=== PATIENT | female | born 1955 | race Two or more races ===

== ENCOUNTER 2019-02-28 20:51 | Emergency (ER) | payer SELFPAY ==
[~2019-02-28] VITALS: Ht 154.9 cm; Wt 75.7 kg
[2019-02-28 21:10] VITALS: BP 163/70
[2019-02-28] MEDS ORDERED: KETOROLAC 15 MG/ML VIAL. IV ONE ×2 (21:45→22:15)
[2019-02-28] MEDS ORDERED: PROCHLORPERAZINE 10 MG/2 ML VIAL. IV ONE ×2 (21:45→22:15)
[2019-02-28] MEDS ORDERED: diphenhydrAMINE 50 MG/ML VIAL IVP ONE ×2 (21:45→22:15)
--- NOTE | 2019-02-28 21:58 | PHYS DOC ---
Past Medical History Past Medical History: Diabetes-Type II (ANDRES QUIÑONES APRN) Past Surgical History: Appendectomy, Cholecystectomy (ANDRES QUIÑONES APRN) Additional Information: non smoker Alcohol Use: None Drug Use: None (ANDRES QUIÑONES APRN) Adult General Chief Complaint Chief Complaint: HEADACHE HPI HPI Patient is 64-year-old female that presents to the ER this evening after having a headache for 2 weeks. The headache is located in the left frontal and diffuse occipital region of the head. She also complains of pressure in her eyes. Headache has gotten worse as it has progressed. Headache is not thunderclap in origin. Headache is atraumatic. Saturday was seen at doctor for headache. This was the first time that she had been to the doctor for two or three years. Se verity of pain is rated 8 out of 10 and is rated as throbbing. Associated symptoms include cold symptoms where she has congestion and mucus. (ANDRES QUIÑONES APRN) Review of Systems Review of Systems Constitutional: Denies fever or chills [] Eyes: Denies change in visual acuity, redness. Reports eye pressure. [] HENT: Reports nasal congestion. Denies sore throat [] Respiratory: Denies cough or shortness of breath [] Cardiovascular: No additional information not addressed in HPI [] GI: Denies abdominal pain, nausea, vomiting, bloody stools or diarrhea [] : Denies dysuria or hematuria [] Musculoskeletal: Denies back pain or joint pain [] Integument: Denies rash or skin lesions [] Neurologic: Denies headache, focal weakness or sensory changes [] Endocrine: Denies polyuria or polydipsia [] Complete systems were reviewed and found to be within normal limits, except as documented in this note. (ANDRES QUIÑONES APRN) Current Medications Current Medications Current Medications Medications (Trade) Dose Ordered Sig/Sapna Start Time Stop Time Status Last Admin Dose Admin Diphenhydramine HCl (Benadryl) 25 mg 1X ONCE 02/28/19 22:15 02/28/19 22:24 DC 02/28/19 22:15 25 MG Ketorolac Tromethamine (Toradol 15mg Vial) 15 mg 1X ONCE 02/28/19 22:15 02/28/19 22:24 DC 02/28/19 22:15 15 MG Ketorolac Tromethamine (Toradol 30mg Vial) 30 mg STK-MED ONCE 02/28/19 22:12 02/28/19 22:13 DC Prochlorperazine Edisylate (Compazine) 10 mg 1X ONCE 02/28/19 22:15 02/28/19 22:24 DC 02/28/19 22:15 10 MG (JUHI GALAN MD) Allergies Allergies Allergies Coded Allergies Type Severity Reaction Last Updated Verified No Known Drug Allergies 02/28/19 No (JUHI GALAN MD) Physical Exam Physical Exam Constitutional: Well developed, well nourished, no acute distress, non-toxic appearance. [] HENT: Normocephalic, atraumatic, bilateral external ears normal, oropharynx moist, no oral exudates, nose normal. [] Eyes: PERRLA, EOMI, conjunctiva normal, no discharge. No temporal tenderness on palpation. Neck: Normal range of motion, no tenderness, supple, no stridor. [] Cardiovascular:Heart rate regular rhythm, no murmur [] Lungs & Thorax: Bilateral breath sounds clear to auscultation [] Abdomen: Bowel sounds normal, soft, no tenderness, no masses, no pulsatile masses. [] Skin: Warm, dry, no erythema, no rash. [] Back: No tenderness, no CVA tenderness. [] Extremities: No tenderness, no cyanosis, no clubbing, ROM intact, no edema. [] Neurologic: Alert and oriented X 3, normal motor function, normal sensory function, no focal deficits noted. [] Psychologic: Affect normal, judgement normal, mood normal. [] (ANDRES QUIÑONES APRN) Current Patient Data Vital Signs Vital Signs Date Time Temp Pulse Resp B/P (MAP) Pulse Ox O2 Delivery O2 Flow Rate FiO2 02/28/19 21:10 99.0 63 16 163/70 (101) 96 Room Air 99.0 (JUHI GALAN MD) EKG EKG [] (ANDRES QUIÑONES APRN) Radiology/Procedures Radiology/Procedures []PATIENT: MARVIN ONTIVEROSACCOUNT: [id number]#: [id number] : 1955 LOCATION: ER AGE: 64 SEX: F EXAM STATUS: REG ER ORD. PHYSICIAN: ANDRES QUIÑONES APRN REASON: worst headache of her life PROCEDURE: CT HEAD WO CONTRAST CT HEAD INDICATION: Worst headache of life. COMPARISON: None Available. Exposure: One or more of the following individualized dose reduction techniques were utilized for this examination: 1. Automated exposure control 2. Adjustment of the mA and/or kV according to patient size 3. Use of iterative reconstruction technique TECHNIQUE: 5 mm contiguous axial images were obtained from the skull base to the vertex . FINDINGS: No abnormal attenuation within the brain parenchyma. Tiny cortical calcification identified in the left frontal region, nonspecific. No evidence of acute intracranial hemorrhage. No extra-axial fluid collections. No mass effect or midline shift. Ventricular size is appropriate. Basal cisterns are patent. No fractures identified.Burnett-white differentiation is preserved.Globes and orbits are within normal limits. Paranasal sinuses and mastoid air cells are clear. IMPRESSION: No acute intracranial findings. Electronically signed by: Dandre Khan MD (03/01/2019 12:33 AM) [facility] (ANDRES QUIÑONES APRN) Course & Med Decision Making Course & Med Decision Making Pertinent Labs and Imaging studies reviewed. (See chart for details) Discussed signs and symptoms with patient. Will obtain a Head CT and will order IV medication for management. Patient is agreeable. Symptoms improved with IV medications. CT of the head is negative. Will discharge home. Patient and family is agreeable. (ANDRES QUIÑONES APRN) Course & Med Decision Making Staff Physician Addendum: I was working in the ER during the course of this patient's visit. I was available for consultation as needed, I did briefly evaluate this patient really did not sound like a subarachnoid and was a subacute headache. (JUHI GALAN MD) Dragon Disclaimer Dragon Disclaimer This electronic medical record was generated, in whole or in part, using a voice recognition dictation system. (ANDRES QUIÑONES APRN) Departure Departure Impression: Primary Impression: Headache Disposition: HOME, SELF-CARE Condition: STABLE Referrals: NO PCP (PCP) Patient Instructions: Migraine Headache, [id number] Additional Instructions: Follow up with Primary Care Doctor. Come back to ER if symptoms worsen. Problem Qualifiers Primary Impression: Headache Headache type: unspecified Headache chronicity pattern: acute headache Intractability: not intractable Qualified Codes: R51 - Headache ANDRES QUIÑONES APRN February 28, 2019 21:58 JUHI GALAN MD March 08, 2019 21:01
[2019-02-28] MEDS ORDERED: diphenhydrAMINE 50 MG/ML VIAL ONE (22:12)
[2019-02-28] MEDS ORDERED: PROCHLORPERAZINE 10 MG/2 ML VIAL. ONE (22:12)
[2019-02-28] MEDS ORDERED: KETOROLAC 30 MG/ML VIAL. ONE (22:12)
[2019-02-28] MEDS ORDERED: KETOROLAC 30 MG/ML VIAL. IM ONE (22:15)
[2019-02-28] MEDS ORDERED: PROCHLORPERAZINE 10 MG/2 ML VIAL. IM ONE (22:15)
[2019-02-28] MEDS ORDERED: diphenhydrAMINE 50 MG/ML VIAL IM ONE (22:15)
--- NOTE | 2019-03-01 00:35 | RAD ---
CT HEAD INDICATION: Worst headache of life. COMPARISON: None Available. Exposure: One or more of the following individualized dose reduction techniques were utilized for this examination: 1. Automated exposure control 2. Adjustment of the mA and/or kV according to patient size 3. Use of iterative reconstruction technique TECHNIQUE: 5 mm contiguous axial images were obtained from the skull base to the vertex . FINDINGS: No abnormal attenuation within the brain parenchyma. Tiny cortical calcification identified in the left frontal region, nonspecific. No evidence of acute intracranial hemorrhage. No extra-axial fluid collections. No mass effect or midline shift. Ventricular size is appropriate. Basal cisterns are patent. No fractures identified.Burnett-white differentiation is preserved.Globes and orbits are within normal limits. Paranasal sinuses and mastoid air cells are clear. IMPRESSION: No acute intracranial findings. Electronically signed by: Dandre Khan MD (03/01/2019 12:33 AM) [facility]
== END 2019-03-01 01:58 | disposition home or self-care (01) ==
LOC: ER 20:51
DX: R51 Headache (principal); R09.81 Nasal congestion; E11.9 Type 2 diabetes mellitus without complications
CPT/HCPCS: 70450; 96374; 96375; 99284; J0780; J1200; J1885

== ENCOUNTER 2020-04-20 22:46 | Emergency (ER) | payer SELFPAY ==
[~2020-04-20] VITALS: Ht 160 cm; Wt 77.2 kg
--- NOTE | 2020-04-20 23:03 | PHYS DOC ---
Past Medical History Past Medical History: Diabetes-Type II Past Surgical History: Appendectomy, Cholecystectomy Smoking Status: Current Every Day Smoker Alcohol Use: None Drug Use: None General Adult EDM: Chief Complaint: MECHANICAL FALL HPI: HPI: Patient is a 65 year old female who presents with complaint of right foot and ankle pain after she slipped on wood floor and twisted her foot and ankle. Patient rates pain as moderate and states that pain is worsened with weightbearing. [] Review of Systems: Review of Systems: Constitutional: Denies fever or chills. [] Respiratory: Denies cough or shortness of breath. [] Cardiovascular: Denies chest pain or edema. [] Musculoskeletal: Complains of right foot and ankle pain. [] Integument: Denies rash. [] Heart Score: Risk Factors: Risk Factors: DM, Current or recent (<one month) smoker, HTN, HLP, family history of CAD, obesity. Risk Scores: Score 0 - 3: 2.5% MACE over next 6 weeks - Discharge Home Score 4 - 6: 20.3% MACE over next 6 weeks - Admit for Clinical Observation Score 7 - 10: 72.7% MACE over next 6 weeks - Early Invasive Strategies Allergies: Allergies: Allergies Coded Allergies Type Severity Reaction Last Updated Verified No Known Drug Allergies 02/28/19 No Physical Exam: PE: Constitutional: Well developed, well nourished, no acute distress, non-toxic appearance. [] Cardiovascular: Regular rate and rhythm [] Lungs & Thorax: Bilateral breath sounds clear to auscultation [] Extremities: Examination of right foot demonstrates mild soft tissue swelling and ecchymosis around the fourth and fifth metatarsals with tenderness overlying this area. [] Neurologic: Alert and oriented X 3, normal motor function, normal sensory function, no focal deficits noted. [] EKG: EKG: [] Radiology/Procedures: Radiology/Procedures: [] Impression: PROCEDURE: ANKLE RIGHT 3V Exam: Right ankle 3 views. Right foot 3 views INDICATION: Fall TECHNIQUE: Frontal, lateral and oblique views of the right ankle and right foot. Comparisons: None FINDINGS: Foot: Bone mineralization is normal. No acute or healed fractures. Soft tissues are unremarkable. Joint spaces are well-maintained. Ankle: Bone mineralization is normal. No acute or healed fractures. Soft tissues are unremarkable. Joint spaces are well-maintained. IMPRESSION: 1. No acute osseous abnormality at the right foot. 2. No acute osseous abnormality at the right ankle. Electronically signed by: Oc Winters MD (04/20/2020 11:18 PM) [id number] Course & Med Decision Making: Course & Med Decision Making Pertinent Labs and Imaging studies reviewed. (See chart for details) [] Dragon Disclaimer: Dragon Disclaimer: This electronic medical record was generated, in whole or in part, using a voice recognition dictation system. Departure Departure Impression: Primary Impression: Right foot sprain Qualified Codes: S93.601A - Unspecified sprain of right foot, initial encounter Disposition: HOME, SELF-CARE Condition: STABLE Referrals: NO PCP (PCP) Patient Instructions: Foot Sprain Scripts Tramadol Hcl (TRAMADOL HCL) 50 Mg Tablet 50 MG PO Q6HRS PRN for PAIN, #10 TAB Prov: PETE ELLIS Jr. DO 04/20/20 Diclofenac Sodium (DICLOFENAC SODIUM) 50 Mg Tablet.dr 1 TAB PO BID PRN for PAIN, #20 TAB Prov: PETE ELLIS Jr. DO 04/20/20 Justicifation of Admission Dx: Justifications for Admission: Justification of Admission Dx: Comment: (Not applicable) PETE ELLIS Jr. DO Apr 20, 2020 23:03
--- NOTE | 2020-04-20 23:21 | RAD ---
Exam: Right ankle 3 views. Right foot 3 views INDICATION: Fall TECHNIQUE: Frontal, lateral and oblique views of the right ankle and right foot. Comparisons: None FINDINGS: Foot: Bone mineralization is normal. No acute or healed fractures. Soft tissues are unremarkable. Joint spaces are well-maintained. Ankle: Bone mineralization is normal. No acute or healed fractures. Soft tissues are unremarkable. Joint spaces are well-maintained. IMPRESSION: 1. No acute osseous abnormality at the right foot. 2. No acute osseous abnormality at the right ankle. Electronically signed by: Oc Winters MD (04/20/2020 11:18 PM) [id number]
[2020-04-20] MEDS ORDERED: TRAM50TA PO (23:26)
[2020-04-20] MEDS ORDERED: DICL50TA4 PO (23:26)
[2020-04-20 23:45] VITALS: BP 127/61
== END 2020-04-20 23:50 | disposition home or self-care (01) ==
LOC: ER 22:46
DX: S93.601A Unspecified sprain of right foot, initial encounter (principal); M25.571 Pain in right ankle and joints of right foot; E11.9 Type 2 diabetes mellitus without complications; F17.200 Nicotine dependence, unspecified, uncomplicated; W01.0XXA Fall on same level from slipping, tripping and stumbling without subsequent striking against object, initial encounter; Y93.89 Activity, other specified; Y92.89 Other specified places as the place of occurrence of the external cause; Y99.8 Other external cause status
CPT/HCPCS: 73610; 73630; 99284

== ENCOUNTER → 2021-07-31 | Outpatient (CLI) | payer OTHER ==
[~2021-07-31] MED LIST: DICL50TA4 PO; IOHEXOL 300 MG/ML 100ML VIAL. IV ONE; TRAM50TA PO
--- NOTE | 2021-07-31 10:08 | RAD ---
EXAMINATION: CT abdomen and pelvis with and without IV contrast. INDICATION:66 years, Female, microscopic hematuria. TECHNIQUE: Axial CT images of the abdomen and pelvis were obtained. Coronal and sagittal reformatted performed. COMPARISON: None. Exposure: One or more of the following individualized dose reduction techniques were utilized for thi s examination: 1. Automated exposure control 2. Adjustment of the mA and/or kV according to patient size 3. Use of iterative reconstruction technique. FINDINGS: LOWER CHEST: Unremarkable. ABDOMEN/PELVIS: Normal symmetric enhancement of the kidneys with normal excretion pattern. No hydronephrosis or nephr olithiasis. No filling defect in the collecting systems or opacified ureters. Multiple bilateral simp le parapelvic renal cysts. Subcentimeter hypodensity in the interpolar right kidney, too small to caitlyn racterize. Focal wall thickening of the anterior urinary bladder wall measures up to 5 mm. Liver, spleen, pancreas, adrenals and biliary ducts are normal. Cholecystectomy. Normal caliber abdom inal aorta. Mesenteric arteries and portal vein are patent. No abdominal adenopathy is size criteria. No pneumoperitoneum or ascites. No bowel obstruction or wall thickening. Appendix is not seen with c ertainty. Hysterectomy changes. No suspicious pelvic masses. MUSCULOSKELETAL: Grade 1 anterolisthesis of L5 over S1. Multilevel degenerative changes in the spine. No acute osseous process or suspicious lesion. Multiple calcified foci in the subcutaneous tissue of the gluteal alec ons, likely representing calcified injection granulomas. IMPRESSION: 1. No obstructive uropathy or urolithiasis. 2. Mild focal anterior urinary bladder wall thickening, indeterminate etiology. Recommend correlation with cystoscopy. 3. Other chronic/incidental findings, as as described above. Electronically signed by: Maciej Wang MD (07/31/2021 10:05 AM) [facility]
== END ==
LOC: CT 08:34
PROVIDERS: ATTEND Physician Assistant Medical
DX: R31.29 Other microscopic hematuria (principal); Z90.49 Acquired absence of other specified parts of digestive tract
CPT/HCPCS: 74178; Q9967

== ENCOUNTER 2021-10-04 11:55 | Emergency (ER) | payer SELFPAY ==
[~2021-10-04] VITALS: Ht 162.6 cm; Wt 85.0 kg
[~2021-10-04 11:55] MED LIST changes: -IOHEXOL 300 MG/ML 100ML VIAL. IV ONE
[2021-10-04] MEDS ORDERED: fentaNYL PF VIAL 100 MCG/2 ML VIAL IVP ONE (12:30)
[2021-10-04] MEDS ORDERED: KETAMINE HCL 500 MG/10 ML VIAL. ONE (13:06)
--- NOTE | 2021-10-04 13:06 | RAD ---
EXAM: XR RT TIBIA+FIBULA , XR LT WRIST 3VIEWS, XR FOREARM_LEFT 2 VIEWS 10/04/2021 12:39 PM CLINICAL INDICATION: Pain COMPARISON: None TECHNIQUE: 3 views of the left wrist. 2 views of the left forearm. 3 views of the right tibia and fi bula. FINDINGS: Left wrist: There is a impacted distal radial metaphyseal fracture with posterior angulation and at l east one half shaft width posterior displacement of the distal fragment. Probable intra-articular ext ension. There is a small minimally displaced ulnar styloid process fracture. The distal radioulnar jose angel int appears disrupted. There is diffuse soft tissue swelling. Left forearm: Distal radial and ulnar fractures as above. The rest of the radius and ulna are intact. Alignment at the elbow is maintained. There is soft tissue swelling at the wrist. Right tibia and fibula: Peripheral subchondral lucency seen at the posterior tibial plateau on obliqu e view is likely artifact, less likely a tibial plateau fracture. The tibia and fibula are otherwise intact. Alignment is normal. No soft tissue abnormality. IMPRESSION: 1. Impacted, displaced and angulated distal radial fracture. 2. Minimally displaced ulnar styloid process fracture. 3. Disruption of the distal radioulnar joint. 4. Subchondral lucency at the posterior tibial plateau seen on oblique view of the leg is most likely artifact. A tibial plateau fracture is less likely. Dedicated radiograph of the knee to be obtained to further evaluate. Electronically signed by: Lissa Bains MD (10/04/2021 1:03 PM) [id number]
[2021-10-04] MEDS ORDERED: PROPOFOL 10 MG/ML (20ML) VIAL. IV ONE (13:15)
[2021-10-04] MEDS ORDERED: KETAMINE HCL IN NACL, ISO-OSM 50 MG/5 ML SYRINGE IV ONE (13:15)
[2021-10-04 13:45] VITALS: BP 197/81
--- NOTE | 2021-10-04 13:53 | RAD ---
XR KNEE 3 VIEWS_RT 10/04/2021 1:13 PM INDICATION: Subchondral lucency along the posterior tibial plateau COMPARISON: None available. TECHNIQUE: 3 views of the right knee are provided. FINDINGS/ IMPRESSION: There is no acute fracture or dislocation. Specifically, posterior tibial plateau appears intact. Tamara nt spaces are maintained. Bone mineralization is within normal limits. Regional soft tissues are with in normal limits. There is no soft tissue gas or osseous erosion. No radiopaque foreign body. No sign ificant knee joint effusion. Electronically signed by: Kianna Pratt MD (10/04/2021 1:51 PM) [id number]
--- NOTE | 2021-10-04 13:55 | RAD ---
XR LUMBAR SPINE 2-3V 10/04/2021 1:13 PM Indication: Low back pain COMPARISON: None available TECHNIQUE: 3 views of the lumbar spine are provided. Findings: 6.5 mm anterolisthesis of L5 on S1. There are 5 nonrib-bearing lumbar type vertebral bodies.. Limited evaluation for spondylolysis. Vertebral body heights are maintained. No acute fracture is identified . Mild endplate degenerative changes are identified involving the distal thoracic spine. Mild disc heig ht loss is identified at L1-L2 and L4-L5 and L5-S1. Mild endplate degenerative changes. Moderate face t arthropathy. No significant osseous neural foraminal soft canal stenosis. Nonobstructive bowel gas pattern. Visualized portions of the sacrum appear intact. Impression: Grade 1 retrolisthesis of L5 on S1 with limited evaluation for spondylolysis. No acute compression fr acture is identified. Electronically signed by: Kianna Pratt MD (10/04/2021 1:53 PM) [id number]
[2021-10-04] MEDS ORDERED: ACET500T68 PO (15:12)
[2021-10-04] MEDS ORDERED: MORP15TA PO (15:12)
--- NOTE | 2021-10-04 15:13 | PHYS DOC ---
Past Medical History Past Medical History: Depression, Diabetes-Type II, Hypertension Past Surgical History: Appendectomy, Cholecystectomy, Hysterectomy Smoking Status: Current Every Day Smoker Alcohol Use: None Drug Use: None Adult General Chief Complaint Chief Complaint: WRIST PAIN HPI HPI The patient is a 66-year-old female who is otherwise healthy. 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 Sat on her buttocks hard after falling on her hand and reports low back discomfort as well, mild. Also reports minimal discomfort over the anterior recio on the right. Denies striking head or neck or any other part of her body during the episode. Obvious closed deformity seen to left wrist. Review of Systems Review of Systems A 12 point review of systems was completed and was negative except where noted in HPI above. Current Medications Current Medications Current Medications Medications (Trade) Dose Ordered Sig/Sapna Start Time Stop Time Status Last Admin Dose Admin Fentanyl Citrate (Fentanyl 2ml Vial) 75 mcg 1X ONCE 10/04/21 12:30 10/04/21 12:31 DC 10/04/21 12:38 75 MCG Ketamine HCl (Ketamine) 500 mg STK-MED ONCE 10/04/21 13:06 10/04/21 13:07 DC Propofol (Diprivan) 85 mg 1X ONCE 10/04/21 13:15 10/04/21 13:23 DC 10/04/21 14:08 85 MG Allergies Allergies Allergies Coded Allergies Type Severity Reaction Last Updated Verified No Known Drug Allergies 10/04/21 No Physical Exam Physical Exam Older female appearing nontoxic and in no acute distress. Head is normocephalic and atraumatic. Neck is supple and nontender. Oropharynx is moist. Lungs are clear to auscultation at all stations. There is a normal S1 and S2 without rubs or gallops and capillary refill is appropriate, less than 2 seconds globally. Abdomen is soft, nontender and nondistended. Skin is warm and dry without cyanosis, clubbing or edema. Psychiatrically, the patient demonstrates appropriate mood and affect and is alert. Evaluation of the left upper extremity is remarkable for a closed deformity to the left wrist. Left upper extremity including the digits of the hand neurovascularly intact distally with strength out of 5, sensation intact light touch in all nerve distributions, radial pulse 2+, capillary refill less than 2 seconds, hand warm and well- perfused. Mild anterior lower pretibial tenderness without swelling, erythema or discomfort with ranging of any joint to the right lower extremity. Evaluation of the back reveals mild lower lumbar midline tenderness to palpation without erythema, warmth, swelling, step-offs or deformities. Bilateral lower extremities neurovascularly intact distally with strength out of 5, sensation intact light touch in all nerve distributions, DP and PT pulses 2+ and equal bilaterally, capillary refill less than 2 seconds, feet warm and well perfused. No dependent peripheral edema distally. No calf tenderness or swelling bilaterally. Current Patient Data Vital Signs Vital Signs Date Time Temp Pulse Resp B/P (MAP) Pulse Ox O2 Delivery O2 Flow Rate FiO2 10/04/21 14:30 68 15 10/04/21 14:00 4.0 10/04/21 13:45 98.5 197/81 10/04/21 12:38 Room Air 10/04/21 12:06 95 EKG EKG [] Radiology/Procedures Radiology/Procedures [] Course & Med Decision Making Course & Med Decision Making Plain films unremarkable aside from evidence of left wrist fracture which was addressed with closed reduction here in the emergency department. Ortho-Glass splint applied. Neurovascularly intact post procedure. Patient tolerated well. Post films demonstrate much improved alignment. Back to her neurocognitive baseline after ketofol sedation. Will discharge home with sling for comfort and referral for close follow-up with orthopedics in the office. Patient understands that if she feels worse instead of better or develops other new symptoms of concern that she will need to return to the emergency department immediately for reevaluation. All questions are answered. Dragon Disclaimer Dragon Disclaimer This electronic medical record was generated, in whole or in part, using a voice recognition dictation system. Procedural Sedation Proc Sed Indication: [Left wrist fracture reduction] Consent: I have discussed with the patient and/or the patient insurance follow up representative the indication, alternatives, and the possible risks and /or complications of the planned procedure and the anesthesia methods. The patient and/or patient insurance follow up representative appear to understand and agree to proceed. Pre-Sedation Documentation and Exam: [Please see physical examination above] Airway Assessment: normal. Prior History of Anesthesia Complications: none. ASA Classification: [Normal healthy patient.] Sedation/ Anesthesia Plan: [Propofol and ketamine] Medications Used: see nursing notes. Monitoring and Safety: The patient was placed on a campus monitor and vital signs, pulse oximetry and level of consciousness were continuously evaluated throughout the procedure. The patient was closely monitored until recovery from the medications was complete and the patient had returned to baseline status. Respiratory therapy was on standby at all times during the procedure. (The following sections must be completed) Post-Sedation Vital Signs: [Within normal limits] Post-Sedation Exam: [At neurocognitive baseline, alert and oriented, vital signs normal.] Complications: none. Vital Signs Vital Signs Date Time Temp Pulse Resp B/P (MAP) Pulse Ox O2 Delivery O2 Flow Rate FiO2 10/04/21 14:30 68 15 10/04/21 14:00 4.0 10/04/21 13:45 98.5 197/81 10/04/21 12:38 Room Air 10/04/21 12:06 95 PROCEDURE Procedure Reduction of left wrist fracture completed by me with traction/countertraction and manipulation. Splinted with a sugar tong splint by nursing staff and I following reduction. Tolerated well. Neurovascularly intact to the left hand post reduction. No complications. Tolerated well. Departure Departure Impression: Primary Impression: Fall from stool Additional Impression: Left wrist fracture Disposition: HOME / SELF CARE / HOMELESS Condition: IMPROVED Referrals: JENNIFER YOST Jr. DO Patient Instructions: Wrist Fracture Additional Instructions: Follow-up very closely with Dr. Yost of [facility] orthopedics in the office in the next 2 to 4 days for a reevaluation of your symptoms and to discussion of next best steps in care. Drink plenty of fluids and get plenty of rest. You may take a 500 mg Tylenol pill every 6 hours as needed for discomfort. For pain not well controlled with Tylenol you may take an oral morphine pill every 6 hours as needed. Be careful because oral morphine can make you sleepy so do not drive or work or operate machinery while taking it. Return to the emergency department right away for worsening symptoms of any kind or with any other new symptoms of concern. Scripts Morphine Sulfate (MORPHINE SULFATE) 15 Mg Tablet 1 TAB PO QID for breakthrough pain, #8 TAB Prov: CLEMENTE ESQUEDA MD 10/04/21 Acetaminophen (ACETAMINOPHEN) 500 Mg Tablet 1 TAB PO PRN Q6HRS PRN for pain or fever for 15 Days, #60 TAB 0 Refills Prov: CLEMENTE ESQUEDA MD 10/04/21 Problem Qualifiers CLEMENTE ESQUEDA MD Oct 04, 2021 15:13
--- NOTE | 2021-10-04 15:29 | RAD ---
XR LT WRIST 3VIEWS History: Reason: POST-REDUCTION / Spl. Instructions: / History: Technique: 3 views left wrist Comparison: October 04, 2021 Findings: Interval reduction comminuted intra-articular impacted right distal radius fracture. Improved alignme nt. Mildly displaced ulnar styloid fracture. Overlying splint degrades evaluation of fine bony detail . Impression: 1. Interval reduction left distal radius comminuted intra-articular fracture, improved alignment. 2. Mildly displaced ulnar styloid fracture. Electronically signed by: Ignacio Young DO (10/04/2021 3:27 PM) [id number]
[2021-10-04 15:30] VITALS: BP 179/75
== END 2021-10-04 15:52 | disposition home or self-care (01) ==
LOC: ER 11:55
DX: S52.502A Unspecified fracture of the lower end of left radius, initial encounter for closed fracture (principal); S52.612A Displaced fracture of left ulna styloid process, initial encounter for closed fracture; E11.9 Type 2 diabetes mellitus without complications; I10 Essential (primary) hypertension; M54.50 Low back pain, unspecified; F17.200 Nicotine dependence, unspecified, uncomplicated; W08.XXXA Fall from other furniture, initial encounter; Y92.69 Other specified industrial and construction area as the place of occurrence of the external cause; Y93.E9 Activity, other interior property and clothing maintenance; Y99.0 Civilian activity done for income or pay
CPT/HCPCS: 25605; 72100; 73090; 73120; 73562; 73590; 96374; 99285; J2704; J3010